=== PATIENT | female | born 1995 | race Caucasian/White ===

== ENCOUNTER → 2017-04-21 15:48 | Observation (INO) ==
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
== END | disposition home or self-care (01) ==
LOC: 1NENULAB
PROVIDERS: ADMIT Student in an Organized Health Care Education/Training Program; ATTEND Student in an Organized Health Care Education/Training Program

== ENCOUNTER → 2017-04-22 22:30 | Observation (INO) ==
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
== END | disposition home or self-care (01) ==
LOC: 1NENULAB
PROVIDERS: ADMIT Registered Nurse; ATTEND Registered Nurse

== ENCOUNTER 2017-06-24 22:03 | Observation (INO) ==
[2017-06-24 22:35] LABS: Amphetamine Screen,Urine Negative ng/mL (Cutoff=1000); Barbiturate Screen,Urine Negative ng/mL (Cutoff=200); Benzodiazepines Screen,Urine Negative ng/mL (Cutoff=200); Cannabinoid Screen,Urine Negative ng/mL (Cutoff = 50); Cocaine Screen,Urine Negative ng/mL (Cutoff= 300); Opiate Screen,Urine Negative ng/mL (Cutoff=300); Phencyclidine Screen,Urine Negative ng/mL (Cutoff=25)
[2017-06-24 22:59] LABS: Bilirubin,Urine Negative (Negative); Blood,Urine Negative (Negative); Clarity,Urine Cloudy (Clear); Color,Urine Yellow (Yellow); Glucose,Urine (UA) Normal (Normal); Ketones,Urine Negative (Negative); Leukocyte Esterase,Urine Large (Negative); Nitrite,Urine Negative (Negative); Protein,Urine Trace mg/dL (Neg-Trace); Specific Gravity,Urine 1.024 (1.010-1.025); Urobilinogen,Urine Normal (Normal)
[2017-06-24 23:05] LABS: Bacteria,Urine Many per hpf (None-Few); Hyaline Casts,Urine None Seen per lpf (None-Few); RBC,Urine 0-3 per hpf (0-3); Squamous Epithelial Cell,Urine Many per lpf (None-Few); WBC,Urine 50-100 per hpf (0-3)
[2017-06-24 23:18] LABS: Yeast,Urine Few per hpf (None Seen)
--- NOTE | 2017-06-24 23:31 | Discharge Summary ---
Date of Encounter: 06/24/17 Time of Encounter: 23:31 - Discharge Diagnosis (1) 34 weeks gestation of Priority: Primary Status: Acute Comments: admit for observation (2) Yeast infection Priority: Secondary Status: Acute Comments: rx for terazol - Discharge Medications Prescriptions: Terconazole [Terazol 3] 20 gm VG HS #1 cream.appl Home Medications: Vitamins 1 tab PO DAILY 04/21/17 [History] Ferrous Sulfate [High Potency Iron] 134 mg PO DAILY 06/24/17 [History] Terconazole [Terazol 3] 20 gm VG HS #1 cream.appl 06/24/17 [Rx] Allergies/Adverse Reactions: 3 Allergy/AdvReac Type Severity Reaction Status Date / Time No Known Allergies Allergy Verified 06/24/17 22:33 Data Procedures and tests throughout hospitalization: Laboratory Tests 06/24/17 06/24/17 22:20 22:20 Urine Color Yellow Urine Clarity Cloudy A Urine pH 7.0 Ur Specific [place] 1.024 Urine Protein Trace Urine Glucose (UA) Normal Urine Ketones Negative Urine Blood Negative Urine Nitrite Negative Urine Bilirubin Negative Urine Urobilinogen Normal Ur Leukocyte Esterase Large H Urine Microscopic RBC 0-3 Urine Microscopic WBC 50-100 H Ur Squamous Epith Cells Many H Urine Bacteria Many H Hyaline Casts None Seen Urine Yeast Few H Ur Culture Indicated? YES A Urine Opiates Screen Negative Ur Barbiturates Screen Negative Ur Phencyclidine Scrn Negative Ur Amphetamines Screen Negative U Benzodiazepines Scrn Negative Urine Cocaine Screen Negative U Marijuana (THC) Screen Negative Labs on day of discharge: Labs from last 24 hours 06/24/17 06/24/17 22:20 22:20 Urine Color Yellow Urine Clarity Cloudy A Urine pH 7.0 Ur Specific [place] 1.024 Urine Protein Trace Urine Glucose (UA) Normal Urine Ketones Negative Urine Blood Negative Urine Nitrite Negative Urine Bilirubin Negative Urine Urobilinogen Normal Ur Leukocyte Esterase Large H Urine Microscopic RBC 0-3 Urine Microscopic WBC 50-100 H Ur Squamous Epith Cells Many H Urine Bacteria Many H Hyaline Casts None Seen Urine Yeast Few H Ur Culture Indicated? YES A Urine Opiates Screen Negative Ur Barbiturates Screen Negative Ur Phencyclidine Scrn Negative Ur Amphetamines Screen Negative U Benzodiazepines Scrn Negative Urine Cocaine Screen Negative U Marijuana (THC) Screen Negative Date of admission: 06/24/17 22:03 Discharging clinician: Tereza Ragland Anticipated date of discharge: 06/24/17 - Patient Status Disposition: Home, Self-Care Condition: Good Functional capacity at discharge: independent ambulation - Discharge Instructions Follow Up With: Haylie Juarez MD [Partnered Physician] - - Diet and Activity Activity: increase activity as tolerated 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 Patient states prior to using the restroom patient had a small gush of fluid. Nitrazine was negative. SVE closed/thick. Urine positive for yeast. Patient denies any vaginal bleeding. Patient reports +FM. Time Attestation: Total time spent providing and/or coordinating discharge services: Time Spent: Less than 30 minutes Exam - Constitutional General appearance IM: A&O X 3, pleasant, answers questions appropriately - Other Additional findings: SVE: Closed/thick/-1 FHR 125 bpm moderate variability +15x15 accels no decels noted. CAt. 1 tracing. - VTE Reasons for not Prescribing Prophylaxis: Treatment not Indicated - Low risk for VTE
== END 2017-06-24 23:36 | disposition home or self-care (01) ==
LOC: 1NENULAB
PROVIDERS: ADMIT Advanced Practice Midwife; ATTEND Advanced Practice Midwife

== ENCOUNTER 2017-07-25 05:57 | Inpatient (IN) ==
[2017-07-25] MEDS ORDERED: Famotidine 20 MG/2 ML VIAL IVP PRN (06:03)
[2017-07-25] MEDS ORDERED: Metoclopramide 10 MG/2 ML VIAL IVP PRN (06:03)
[2017-07-25] MEDS ORDERED: miSOPROStol 25 MCG TABLET VG PRN (06:03)
--- NOTE | 2017-07-25 07:12 | OB/GYN History & Physical ---
Addendum entered and electronically signed by Wong Martinez DO 07/25/17 07 :20: Labs GBS: negative HepBSAb: non-reactive (01/24/17) HIV Ag/AB: non-reactive T. Pallidum: negative Rubella Ab: positive Varicella Ab: positive Original Note: Date of Encounter: 07/25/17 Time of Encounter: 07:05 Assessment and Plan (1) 39 weeks gestation of Current visit: Yes Status: Acute Patient will be admitted to be induced. - IV fluids. - Cytotec. History of Present Illness Chief complaint: Induction HPI: Ms. Crow is a 22 year old female at 39 1/7 wks gestation that presents for labor induction. She says that she feels good movements. She denies vaginal fluid leakage or bleeding. She denies contractions. She has been heaving headaches for the past 2 days secondary to a toothache, but currently denies a headache. She denies vision changes, chest pain, fever, chills, diarrhea, nausea, vomiting, or dysuria. Past Med Surg Social Fam HX - Past Medical History Medical history: no medical history Psychiatric history: no psych history - Past Surgical History Surgical History: other - Social History Smoking Status: Never smoker Smokeless Tobacco Status: No Alcohol use: none Drug use: none - Family History Mother Adopted: No Age: 44 Family Member Ethnicity: Non- Living Status: Still Living Hx Family Cardiac Disorders: No Hx Family Respiratory Disorders: No Hx Family Cancer: No Hx Family GI Disorders: No Hx Family Genitourinary Disorders: No Hx Family Endocrine Disorder: No Hx Family Musculoskeletal Disorders: No Hx Family Neuromuscular Disorders: No Hx Family Neurologic Disorders: No Hx Family HEENT Disorders: No Hx Family Autoimmune Disorders: No Hx Family Reproductive Disorders: No Hx Family Psychosocial Disorders: No Hx Family Medical Disorders: No Obstetrical History - Pregnancies : 1 Para: 0 Term: 0 : 0 Ab's: 0 Livin Medications and Allergies Vitamins 1 tab PO DAILY 04/21/17 [History] Ferrous Sulfate [High Potency Iron] 134 mg PO DAILY 06/24/17 [History] 3 Allergy/AdvReac Type Severity Reaction Status Date / Time No Known Allergies Allergy Verified 06/24/17 22:33 Exam - Vital Signs Vital signs: Initial Vital Signs Temp Pulse Resp BP 97.4 F L 82 16 157/85 07/25/17 06:17 07/25/17 06:17 07/25/17 06:17 07/25/17 06:17 - Constitutional Constitutional: well developed, well nourished, no acute distress, average body habitus - Lungs Respiratory exam: CTAB - Cardiovascular Cardiovascular exam: RRR, +S1, +S2 - Abdomen Abdomen: Present: bowel sounds normal, gravid, non tender - Extremities Extremities exam: full ROM, normal inspection, radial pulses palpable and symmetrical Deep Tendon Reflex Grade: 2+ Normal - Cervix Dilation: 0 Effacement: 100 Station: -3 - Uterus Uterus exam: Present: normal size (FHTs 145 with moderate variability and 15 x 15 accels and no decels. Category I tracing) Results Result Diagrams: 07/25/17 06:50 All other labs normal. - VTE Reasons for not Prescribing Prophylaxis: Treatment not Indicated - Low risk for VTE - Attending Attestation I examined this patient and my medical decision-making was reviewed with the Resident Physician. I agree with the documented findings, disposition and treatment plan as described. Dahlia Hernandez CNM
[2017-07-25 07:18] LABS: Basophils % 0.3 %; Eosinophils # 0.1 K/mcL (0.0-0.6); Eosinophils % 0.7 %; Hematocrit 33.2 % (35.3-44.9); Hemoglobin 9.9 g/dL (11.5-15.4); Immature Granulocytes % 0.9 % (0-4); Immature Platelets 8.8 % (1.1-6.1); Lymphocytes # 1.9 K/mcL (0.6-4.6); Lymphocytes % 15.9 %; Mean Corpuscular HGB Conc 29.8 g/dL (31.6-35.5); Mean Corpuscular Hemoglobin 22.8 pg (28.0-33.3); Mean Corpuscular Volume 76.5 fL (83.0-100.0); Mean Platelet Volume 10.9 fL (9.4-12.4); Monocytes # 0.9 K/mcL (0.0-1.3); Monocytes % 7.6 %; Neutrophils # 8.7 K/mcL (1.6-8.9); Platelet Count 342 K/mcL (140-400); Red Blood Count 4.34 M/mcL (3.82-4.97); Red Cell Distribution Width 17.2 % (11.5-14.5); Segmented Neutrophils % 74.6 %
[2017-07-25 09:29] LABS: Amphetamine Screen,Urine Negative ng/mL (Cutoff=1000); Barbiturate Screen,Urine Negative ng/mL (Cutoff=200); Benzodiazepines Screen,Urine Negative ng/mL (Cutoff=200); Cannabinoid Screen,Urine Negative ng/mL (Cutoff = 50); Cocaine Screen,Urine Negative ng/mL (Cutoff= 300); Opiate Screen,Urine Negative ng/mL (Cutoff=300); Phencyclidine Screen,Urine Negative ng/mL (Cutoff=25)
--- NOTE | 2017-07-25 11:05 | Anesthesia Evaluation PreOp ---
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: Denies Any Significant HX Other Medical History: Other (anemia) Anesthesia History: No Prior Anesthetic Complications : Yes Alcohol Use: none Drug use: none Medications and Allergies Vitamins 1 tab PO DAILY 04/21/17 [History] Ferrous Sulfate [High Potency Iron] 134 mg PO DAILY 06/24/17 [History] 3 Allergy/AdvReac Type Severity Reaction Status Date / Time No Known Allergies Allergy Verified 06/24/17 22:33 - Meds/Allergy Pre-op Review Medications Reviewed: Yes Allergies Reviewed: Yes Beta Blockers on Current Med List: No Anesthesia Results - Labs 07/25/17 06:50 Anesthesia Exam Vital Signs Temperature 97.4 F L 07/25/17 06:17 Pulse Rate 82 07/25/17 06:17 Respiratory Rate 16 07/25/17 06:17 Blood Pressure 157/85 07/25/17 06:17 Temperature 97.4 F L 07/25/17 06:17 Pulse Rate 82 07/25/17 06:17 Respiratory Rate 16 07/25/17 06:17 Blood Pressure 157/85 07/25/17 06:17 Height: 5'9" Weight: 99kg NPO (# of Hours): 4 Pain Scale: 0 Pain Scale Used: Numeric (1 - 10) - HEENT Pupil (Motor): Pupils equal Mallampati: II Teeth: Normal Oral Opening: Greater than 3 - MOSAIC FLOOR LAYER LOC: Oriented [place] FLOOR [place]AY[employer] Motor: Normal RUE, Normal LUE, Normal RLE, Normal LLE, Normal Face [place] FLOOR [place]AYER Sensory: Normal: RUE, LUE, RLE, LLE, Face - Cardiac Rhythm: Regular Murmur: None JVD: No Carotid Bruit: No - Pulmonary Breath Sounds: bilateral Clear Respiratory Effort: Symmetrical Anesthesia Assess/Plan ASA Score: 2 Modified [place] Scale for Level of Consciousness: Cooperative, oriented, and tranquil Anesthetic Plan: Regional Autologous Blood: No Monitoring Plan: Standard Monitors Recovery Plan: Other
--- NOTE | 2017-07-25 11:48 | OB Labor Progress Note ---
Date of Encounter: 07/25/17 Time of Encounter: 11:45 Labor Progress Note - Subjective Subjective: Patient sitting up in chair. States contractions are uncomfortable, but not painful - Vital Signs Vital Signs: VSS - Cervix Cervix: 1/thick/-1 posterior moderate - Heart Tones Heart Tones: 145 with moderate variability and 15 x 15 accels. No decels. - [place]: [place] - contractions every 2 - 3 minutes lasting 45 seconds in length. Palpate mild. - Interventions Interventions: Intracervical peralta balloon placed with speculum without difficulty. Patient and fetus tolerated well. - Plan Plan: Continue routine labor management. GBS negative Pain is well controlled Patient may have nubain/epidural upon request Consider pitocin and/or AROM after peralta bulb is removed Anticipate vaginal delivery POC per consult with Dr Juarez.
[2017-07-25] MEDS ORDERED: *HR* Nalbuphine 20 MG/ML AMPUL ONE (13:27)
[2017-07-25] MEDS ORDERED: Oxytocin 20 units/ LR 1000 mL 20 UNIT/1,000 ML BAG IVC SCH (14:45)
[2017-07-25] MEDS: Ringers Solution, Lactated 1,000 ML IVC SCH (15:53)
[2017-07-25] MEDS ORDERED: Naloxone 0.4 MG/ML INJ IVP PRN (17:08)
[2017-07-25] MEDS ORDERED: EPHEDrine 50 MG/ML VIAL IVP PRN (17:08)
[2017-07-25] MEDS ORDERED: Bupivacaine-MPF 0.25% 10 ML VIAL EP ONE (17:08)
[2017-07-25] MEDS ORDERED: *HR* FentaNYL (PF) 100 MCG/2 ML VIAL EP ONE (17:08)
[2017-07-25] MEDS ORDERED: Ondansetron 4 MG/2 ML VIAL IVP PRN (17:08)
[2017-07-25] MEDS ORDERED: Epidural Premix (fent/bupiv) 110 ML EP SCH (17:15)
[2017-07-25] MEDS ORDERED: Bupivacaine-MPF 0.25% 10 ML VIAL ONE (17:35)
[2017-07-25] MEDS ORDERED: *HR* FentaNYL (PF) 100 MCG/2 ML VIAL ONE (17:35)
[2017-07-25] MEDS ORDERED: Epidural Premix (fent/bupiv) 110 ML EP ONE (17:39)
--- NOTE | 2017-07-25 18:03 | OB Labor Progress Note ---
Date of Encounter: 07/25/17 Time of Encounter: 17:59 Labor Progress Note - Subjective Subjective: Patient resting comfortably in bed. Pain is well controlled. - Vital Signs Vital Signs: VSS - Cervix Cervix: 4/80/-2 midposition soft - Heart Tones Heart Tones: 145 with moderate variability and 15 x 15 accels. no decels - [place]: Contractions every 2 hours. - Interventions Interventions: AROM for moderate amount of clear fluid, IUPC placed without difficulty - Plan Plan: Continue routine labor management Patient may have nubain and or epidural upon request GBS negative Continue to titrate pitocin for adequate labor management Anticipate vaginal delivery POC per consult with Dr Juarez
--- NOTE | 2017-07-25 21:37 | Anesthesia Procedures ---
Date of Encounter: 07/25/17 Time of Encounter: 19:55 Procedures: Anesthesia - Epidural/Spinal Patient ID/Chart reviewed: Yes Patient examined: Yes OB Eval: Gestational age: 39 OB Eval: : 1 OB Eval: Hx Para: 0 OB Eval: Dilated at (cm): 3 OB Eval: Contractions: Non-stressed pattern Consent Obtained: Yes Supplemental Oxygen: None/Room Air Site Prep: Aseptic Technique, Sterile prep and drape, Povidone-Iodine 1% Patient position: upright Local Anesthetic: Lidocaine 1% Amount of Local Anesthetic used: 3 Touhy Needle Gauge: 18 Touhy Needle Depth (cm): 6 Catheter Depth at Skin (cm): 15 Test Dose (1.5% Lido + Epi): Volume given (mls): 3 Test Dose Result: Negative Loading Dose: 0.25% Marcaine (mls): 10 Loading Dose: Fentanyl (mcg): 100 Loading Dose Administered: Thru Catheter Infusion Med: 0.125% Bupivacaine w/ 2 mcg/ml Fentanyl Infusion Rate (mls/hr): [address]: Tegaderm, Tape Interspace Used: L4-L5 Loss of Resistance (SHAILA): Yes Blood: No CSF: No Paresthesia: No Procedure: ALEXIA placed 1st pass in upright position without any immediate noted complications. VSS and FHT stable throughout Vitals + FHT's: 1954 BP 173/80 P 88 R 18 2020 BP 143/74 P 63 R 16
[2017-07-26] MEDS ORDERED: Acetaminophen 325 MG TABLET PO ONE (00:40)
[2017-07-26] MEDS ORDERED: ROPIVACAINE HCL/PF 0.5% 30 ML VIAL ONE (01:56)
--- NOTE | 2017-07-26 02:08 | Anesthesia Progress Note ---
Date of Encounter: 07/26/17 Time of Encounter: 02:05 Anesthesia Note - Note Note: 07/26/17 02:05 Pt stating return of labor pains in back and stomach at 7 of 10 on pain scale. Ropivicaine 0.5% 7ml administered via epidural. Pump rate increased from 16ml/ hr to 18ml/hr. VSS. Will follow up.
[2017-07-26] MEDS ORDERED: Epidural Premix (fent/bupiv) 110 ML EP ONE ×2 (02:25→07:15)
--- NOTE | 2017-07-26 06:47 | Anesthesia Progress Note ---
Date of Encounter: 07/26/17 Time of Encounter: 06:41 Anesthesia Note - Note Note: 07/26/17 06:41 Pt stating return of pain in back and groin of 8 of 10. Pt had been vomiting within the last hour. After previous bolus at 2 am, patient slept and pain subsided. Repeat bolus ropivicaine 0.5% 8ml via epidural catheter. Will follow up.
[2017-07-26] MEDS: Ringers Solution, Lactated 1,000 ML IVC SCH (07:02)
--- NOTE | 2017-07-26 09:19 | OB/GYN Procedure Note ---
Delivery - Delivery Date: 07/26/17 Provider: Sunday Rojas Intrapartum events: none Delivery induction: misoprostol Delivery monitor: external FHT, internal uterine Anesthesia: epidural Estimated Blood Loss: 300 - (s) Infant A Infant Delivery Date: 07/26/17 Infant Delivery Time: 08:49 Presentation: vertex Position: OA Route of delivery: Gender: Female Viability: Viable Pounds: 8 Ounces: 9 at 1 minute: 8 at 5 mins: 9 Shoulder Dystocia: not encountered Specimens collected: cord blood Placenta: spontaneous Cord: 3 umbilical vessels - Repair Episiotomy: none Laceration Description: Perineal - 1st Degree - Complications Delivery complications: none - Disposition Mom disposition: stable in LDR disposition: stable in LDR - Comments Comments: Pt s/p of liveborn female form OA position without difficulty. Spontaneous delivery of normal placental with 3VC. 1st degree laceration repaired under epidural with 3 vc.
[2017-07-26] MEDS ORDERED: Measles/Mumps/Rubella Vacc 0.5 ML VIAL SQ PRN (12:05)
[2017-07-26] MEDS ORDERED: Rho Immune Globulin 1,500 UNIT SYRINGE IM PRN (12:05)
[2017-07-26] MEDS ORDERED: Acetaminophen 325 MG TABLET PO PRN (12:05)
[2017-07-26] MEDS ORDERED: Oxytocin 20 units/ LR 1000 mL 20 UNIT/1,000 ML BAG IVC SCH (12:05)
[2017-07-26] MEDS: Ibuprofen 600 MG TABLET PO PRN ×2 (13:37→21:08)
[2017-07-27 06:17] LABS: Basophils # 0.1 K/mcL (0.0-0.2); Basophils % 0.4 %; Eosinophils # 0.1 K/mcL (0.0-0.6); Eosinophils % 0.9 %; Hematocrit 25.5 % (35.3-44.9); Hemoglobin 7.8 g/dL (11.5-15.4); Immature Granulocytes % 0.7 % (0-4); Lymphocytes % 14.5 %; Mean Corpuscular HGB Conc 30.6 g/dL (31.6-35.5); Mean Corpuscular Hemoglobin 23.2 pg (28.0-33.3); Mean Corpuscular Volume 75.9 fL (83.0-100.0); Mean Platelet Volume 10.8 fL (9.4-12.4); Monocytes # 1.1 K/mcL (0.0-1.3); Monocytes % 7.9 %; Neutrophils # 10.5 K/mcL (1.6-8.9); Platelet Count 280 K/mcL (140-400); Red Blood Count 3.36 M/mcL (3.82-4.97); Red Cell Distribution Width 17.4 % (11.5-14.5); Segmented Neutrophils % 75.6 %
[2017-07-27] MEDS: Ibuprofen 600 MG TABLET PO PRN (06:25)
[2017-07-27 08:35] VITALS: BP 136/82
--- NOTE | 2017-07-27 08:37 | OB/GYN Progress Note ---
Date of Encounter: 07/27/17 Time of Encounter: 08:35 - Assessment and Plan (1) Status post vaginal delivery Current Visit: Yes Status: Acute patient doing very well, , lochia light, cont current inpt care Subjective - Subjective Patient reports: appetite normal, voiding normally, pain well controlled, ambulating normally [place]: doing well Objective - Latest Vital Signs Latest vital signs: Vital Signs Temp Pulse Pulse Resp BP Pulse Ox 07/27/17 07:30 98.2 F 95 16 136/82 07/27/17 05:11 98.2 F 89 89 18 132/85 07/26/17 19:25 98.0 F 90 16 129/76 98 07/26/17 14:19 98.8 F 79 17 132/82 97 07/26/17 13:30 98.6 F 81 16 123/70 07/26/17 12:00 98.8 F 88 18 144/87 98 Intake and Output 07/26/17 07/27/17 07/27/17 23:59 07:59 15:59 Intake Total 1300 / 1300 200 / 200 Output Total 600 / 600 1000 / 1000 Balance 700 / 700 -800 / -800 Intake: IV Fluids 0 / 0 Pitocin 20 unit In 1,000 ml @ 0 / 0 125 mls/hr IVC .Q8H PERNELL Rx#: [id number] Oral 1300 / 1300 200 / 200 Output: Urine 600 / 600 1000 / 1000 Other: Meal Dinner Percent of Meal Consumed 100% Weight 96.5 kg Patient Weight 07/27/17 23:59 Weight 96.5 kg - Exam Lungs: bilateral: normal Chest: Normal S1, Normal S2 Extremities: Present: normal Abdomen: Present: soft Uterus: Present: normal - Labs Labs: Laboratory Results - last 24 hr 07/27/17 05:48 WBC 13.9 H RBC 3.36 L Hgb 7.8 L D Hct 25.5 L MCV 75.9 L MCH 23.2 L MCHC 30.6 L RDW 17.4 H Plt Count 280 MPV 10.8 Immature Gran % 0.7 Seg Neutrophils % 75.6 Lymphocytes % 14.5 Monocytes % 7.9 Eosinophils % 0.9 Basophils % 0.4 Neutrophils # 10.5 H Lymphocytes # 2.0 Monocytes # 1.1 Eosinophils # 0.1 Basophils # 0.1
[2017-07-27] MEDS ORDERED: Prenatal Vit/FA 1 EACH TABLET PO SCH (09:00)
--- NOTE | 2017-07-27 14:26 | Discharge Summary ---
Date of Encounter: 07/27/17 Time of Encounter: 14:25 - Discharge Diagnosis (1) Status post vaginal delivery Priority: Primary Status: Acute Comments: ok for discharge - Discharge Medications Home Medications: Vitamins 1 tab PO DAILY 04/21/17 [History] Ferrous Sulfate [High Potency Iron] 134 mg PO DAILY 06/24/17 [History] Allergies/Adverse Reactions: 3 Allergy/AdvReac Type Severity Reaction Status Date / Time No Known Allergies Allergy Verified 06/24/17 22:33 Data Procedures and tests throughout hospitalization: Laboratory Tests 07/25/17 07/25/17 07/27/17 06:50 06:50 05:48 WBC 11.7 H 13.9 H RBC 4.34 3.36 L Hgb 9.9 L 7.8 L D Hct 33.2 L 25.5 L MCV 76.5 L 75.9 L MCH 22.8 L 23.2 L MCHC 29.8 L 30.6 L RDW 17.2 H 17.4 H Plt Count 342 280 MPV 10.9 10.8 Immature Gran % 0.9 0.7 Seg Neutrophils % 74.6 75.6 Lymphocytes % 15.9 14.5 Monocytes % 7.6 7.9 Eosinophils % 0.7 0.9 Basophils % 0.3 0.4 Neutrophils # 8.7 10.5 H Lymphocytes # 1.9 2.0 Monocytes # 0.9 1.1 Eosinophils # 0.1 0.1 Basophils # 0.0 0.1 Immature Plt Fraction 8.8 H Urine Opiates Screen Negative Ur Barbiturates Screen Negative Ur Phencyclidine Scrn Negative Ur Amphetamines Screen Negative U Benzodiazepines Scrn Negative Urine Cocaine Screen Negative U Marijuana (THC) Screen Negative Labs on day of discharge: Labs from last 24 hours 07/27/17 05:48 WBC 13.9 H RBC 3.36 L Hgb 7.8 L D Hct 25.5 L MCV 75.9 L MCH 23.2 L MCHC 30.6 L RDW 17.4 H Plt Count 280 MPV 10.8 Immature Gran % 0.7 Seg Neutrophils % 75.6 Lymphocytes % 14.5 Monocytes % 7.9 Eosinophils % 0.9 Basophils % 0.4 Neutrophils # 10.5 H Lymphocytes # 2.0 Monocytes # 1.1 Eosinophils # 0.1 Basophils # 0.1 Date of admission: 07/25/17 05:57 Primary care physician: PCP NONE Consults: 07/26/17 12:05 Consult to Coin Rolling Machine Operator [CONS] Routine Comment: Vaginal delivery, consult needed - Patient Status Disposition: Home, Self-Care Condition: Good Functional capacity at discharge: independent ambulation Overall status at discharge: patient is progressing back to baseline - Discharge Instructions Follow Up With: NONE,PCP [Primary Care Provider] - Hospital Course MEDICAL OFFICE 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
== END 2017-07-27 15:40 | disposition home or self-care (01) | DRG 775 ==
LOC: 1NENULAB 05:57 → 1NENUOBS 07-26 11:53
PROVIDERS: ADMIT Student in an Organized Health Care Education/Training Program; ATTEND Student in an Organized Health Care Education/Training Program

== ENCOUNTER 2017-10-11 00:34 | Observation (INO) ==
[2017-10-11 01:35] LABS: Basophils # 0.1 K/mcL (0.0-0.2); Basophils % 0.4 %; Eosinophils # 0.2 K/mcL (0.0-0.6); Eosinophils % 1.1 %; Hematocrit 36.2 % (35.3-44.9); Hemoglobin 10.9 g/dL (11.5-15.4); Immature Granulocytes % 0.4 % (0-4); Lymphocytes # 1.9 K/mcL (0.6-4.6); Lymphocytes % 13.2 %; Mean Corpuscular HGB Conc 30.1 g/dL (31.6-35.5); Mean Corpuscular Volume 76.5 fL (83.0-100.0); Mean Platelet Volume 10.1 fL (9.4-12.4); Monocytes # 1.5 K/mcL (0.0-1.3); Monocytes % 10.9 %; Neutrophils # 10.4 K/mcL (1.6-8.9); Platelet Count 426 K/mcL (140-400); Red Blood Count 4.73 M/mcL (3.82-4.97); Red Cell Distribution Width 15.3 % (11.5-14.5)
[2017-10-11 01:50] LABS: Bilirubin,Urine Negative (Negative); Blood,Urine Negative (Negative); Clarity,Urine Clear (Clear); Color,Urine Yellow (Yellow); Glucose,Urine (UA) Normal (Normal); Ketones,Urine Negative (Negative); Leukocyte Esterase,Urine Small (Negative); Nitrite,Urine Negative (Negative); PH,Urine 6.5 pH Units (5.0-8.0); Protein,Urine 30 mg/dL (Neg-Trace); Specific Gravity,Urine 1.026 (1.010-1.025); Urobilinogen,Urine Normal (Normal)
[2017-10-11 01:54] LABS: Bacteria,Urine None Seen per hpf (None-Few); Hyaline Casts,Urine None Seen per lpf (None-Few); Squamous Epithelial Cell,Urine Many per lpf (None-Few); WBC,Urine 15-30 per hpf (0-3)
--- NOTE | 2017-10-11 02:59 | Emergency Department Note ---
Disposition Clinical Impression: Transaminitis Abdominal pain Qualifiers: Abdominal location: unspecified location Qualified Code(s): R10.9 - Unspecified abdominal pain Pancreatitis Qualifiers: Chronicity: acute Pancreatitis type: unspecified pancreatitis type Acute pancreatitis complication: unspecified Qualified Code(s): K85.90 - Acute pancreatitis without necrosis or infection, unspecified Nausea & vomiting Qualifiers: Vomiting type: unspecified Vomiting Intractability: unspecified Qualified Code( s): R11.2 - Nausea with vomiting, unspecified Disposition: Admitted As Inpatient Condition: Good Time of Disposition: 04:44 Abdominal Pain HPI - General Chief Complaint: ED Abdominal Pain Stated Complaint: abdominal pain Time Seen by Provider: 10/11/17 00:40 Source: patient Mode of arrival: ambulatory Limitations: no limitations Nursing Notes Reviewed: Yes Vital Signs Reviewed: Yes - History of Present Illness HPI Narrative: 22-year-old female 2 months presents to the ED with abdominal pain. Patients unsure if this is continue sensor or not but has been persistent and intermittent. The pain is mostly in the right upper quadrant. Seems to be worse at night describes as a sharp pain. Reports nausea and vomiting. She is currently breast-feeding and was concerned that she may be as she did have a positive urine . Denies any fevers, recent illness, chest pain or shortness of breath. Denies any urinary symptoms. She does report issues with constipation she denies any opiate use. Denies any alcohol use. States she had similar episodes may be during and at one time was told she has gallstones. She does have appointment with Dr. Fatima in 5 days for evaluation. Earlier today she has some severe pain took ibuprofen with minimal relief. Pt Subjective Complaint: abdominal pain Pain Scale: 8 - Related Data Home Medications Medication Instructions Recorded Confirmed Vitamins 1 tab PO DAILY 04/21/17 06/24/17 Ferrous Sulfate [High Potency Iron] 134 mg PO DAILY 06/24/17 06/24/17 Previous Rx's Medication Instructions Recorded Ibuprofen [Motrin] 600 mg PO Q6HR PRN #60 tab 07/27/17 Allergies Allergy/AdvReac Type Severity Reaction Status Date / Time No Known Allergies Allergy Verified 09/02/17 02:59 All systems ED: reviewed and negative except as stated. Review of Systems: As Per HPI Constitutional: Denies: fever, chills ENT ED: Denies: congestion Cardiovascular: Denies: chest pain Respiratory: Denies: cough, dyspnea Gastrointestinal: Reports: abdominal pain, nausea, vomiting Genitourinary: Denies: urgency, dysuria Musculoskeletal: Denies: back pain Integumentary: Denies: rash, abrasion Neurological: Denies: headache Abdominal Pain PMH - Past Medical History Medical history: Reports: no medical history Female Surgical History: Reports: Tonsillectomy [employer] history: Reports: Psychiatric history: Reports: no psych history - Social History Smoking status: Never smoker Alcohol use: Reports: none Drug use: Reports: none Physical Exam - General Limitations: no limitations General appearance: alert, in no apparent distress - Head Head exam: atraumatic, normocephalic, normal inspection - Eye Eye exam: Present: normal appearance, PERRL, EOMI. Absent: scleral icterus - ENT ENT exam: normal exam, normal oropharynx, mucous membranes moist - Neck Neck exam: Present: normal inspection, full ROM, trachea midline - Chest Chest inspection: Present: normal inspection, symmetric chest wall rise - Respiratory Respiratory exam: Present: normal lung sounds bilaterally - Cardiovascular Cardiovascular exam: Present: regular rate, normal rhythm, normal heart sounds - Abdominal Exam Abdominal exam: Present: soft, tenderness, normal bowel sounds, Clay's sign. Absent: Non-Tender, distention, guarding, rebound, rigidity, tenderness at McBurney's Point Abdominal tenderness: Present: RUQ, epigastrium - Extremities Exam Extremities exam: Present: normal inspection, full ROM, normal capillary refill. Absent: tenderness, pedal edema - Back Exam Back exam: Present: normal inspection, full ROM. Absent: tenderness, CVA tenderness (R), CVA tenderness (L) - Neurological Exam Neurological exam: Present: alert, oriented X3 - Skin Skin exam: Present: warm, dry, intact, normal color. Absent: rash, cyanosis, diaphoresis Course - Reevaluation(s) Reevaluation #1: Patient has positive Clay sign on examination. Bedside ultrasound performed by myself showed sludge within normal anterior wall of 0.24 cm. She had sonographic Clay sinus well. No McBurney point tenderness. These findings are consistent with biliary colic. Unfortunately her electrolytes and hepatic panel require redraw. She does have a mild leukocytosis. Urinalysis is not consistent with infection. She is not . Will wait reanalysis of her laboratory results. Patient is currently pain free right now. I have offered her ibuprofen and/or Tylenol which she has kindly refused at this time. Would normally consider Bentyl or Levsinbut given her and breast-feeding is contraindicated at this time. She is agreeable to this plan. Reevaluation #2: Review for labs show elevated transaminase and alk phos, however they are improved from prior. Her lipases significantly elevated 8000. CT was performed and confirms pancreatitis. Given her history of of cholelithiasis suspect this is likely gallstone pancreatitis. She does have a schedule point will with Dr. Fatima on Friday. Her pain is controlled at this time. We will continue aggressive fluid hydration and admit her for further evaluation and management. Patients in agreement with this plan. Impression is abdominal pain nausea vomiting and pancreatitis. - Consultations Consultation #1: Spoke with on-call hospitalist deepa Tidwell to admit for cute pancreatitis. No further orders at this time Time: 04:43 Vital Signs Temperature 97.6 F 10/11/17 00:35 Pulse Rate 86 10/11/17 00:35 Respiratory Rate 18 10/11/17 00:35 Blood Pressure 136/84 10/11/17 00:35 O2 Sat by Pulse Oximetry 100 10/11/17 00:35 Temperature 97.6 F 10/11/17 00:35 Pulse Rate 73 10/11/17 04:25 Respiratory Rate 16 10/11/17 04:25 Blood Pressure 127/65 10/11/17 04:25 O2 Sat by Pulse Oximetry 99 10/11/17 03:06 Oxygen Delivery Oxygen Delivery Room Air Abdominal Pain - MDM Narrative Medical decision making narrative: Patient was discussed with my attending physician who agrees with ED management and final disposition. They independently evaluated the patient. Please refer to their attestation to this encounter for additional information. This note was generated by [employer] voice recognition software and as a result grammatical or spelling errors may occur using this program. - Medical Records Medical records reviewed: Yes I reviewed the patient's medical records. - Lab Data Lab results reviewed: Yes I reviewed the patient's lab results. Result diagrams: 10/11/17 01:01 10/11/17 02:36 Lab Results 10/11/17 10/11/17 10/11/17 Range/Units 00:42 01:01 01:01 WBC 14.0 H (4.3-11.1) K/mcL RBC 4.73 (3.82-4.97) M/mcL Hgb 10.9 L (11.5-15.4) g/dL Hct 36.2 (35.3-44.9) % MCV 76.5 L (83.0-100.0) fL MCH 23.0 L (28.0-33.3) pg MCHC 30.1 L (31.6-35.5) g/dL RDW 15.3 H (11.5-14.5) % Plt Count 426 H (140-400) K/mcL MPV 10.1 (9.4-12.4) fL Immature Gran % 0.4 (0-4) % Seg Neutrophils % 74.0 % Lymphocytes % 13.2 % Monocytes % 10.9 % Eosinophils % 1.1 % Basophils % 0.4 % Neutrophils # 10.4 H (1.6-8.9) K/mcL Lymphocytes # 1.9 (0.6-4.6) K/mcL Monocytes # 1.5 H (0.0-1.3) K/mcL Eosinophils # 0.2 (0.0-0.6) K/mcL Basophils # 0.1 (0.0-0.2) K/mcL Sodium Cancelled Potassium Cancelled Chloride Cancelled Carbon Dioxide Cancelled BUN Cancelled Creatinine Cancelled Est GFR ( Amer) Cancelled Est GFR (Non-Af Amer) Cancelled BUN/Creatinine Ratio Cancelled Glucose Cancelled Calculated Osmolality Cancelled Calcium Cancelled Total Bilirubin Cancelled Direct Bilirubin Cancelled Indirect Bilirubin Cancelled AST Cancelled ALT Cancelled Alkaline Phosphatase Cancelled Serum Total Protein Cancelled Albumin Cancelled Globulin Cancelled Albumin/Globulin Ratio Cancelled Lipase Cancelled Beta HCG, Quant < 1 (Less than 5) mIU/mL Urine Color Yellow (Yellow) Urine Clarity Clear (Clear) Urine pH 6.5 (5.0-8.0) pH Units Ur Specific [place] 1.026 H (1.010-1.025) Urine Protein 30 H (Neg-Trace) mg/dL Urine Glucose (UA) Normal (Normal) mg/dL Urine Ketones Negative (Negative) mg/dL Urine Blood Negative (Negative) Urine Nitrite Negative (Negative) Urine Bilirubin Negative (Negative) Urine Urobilinogen Normal (Normal) mg/dL Ur Leukocyte Esterase Small H (Negative) Urine Microscopic RBC 3-5 H (0-3) per hpf Urine Microscopic WBC 15-30 H (0-3) per hpf Ur Squamous Epith Cells Many H (None-Few) per lpf Urine Bacteria None Seen (None-Few) per hpf Hyaline Casts None Seen (None-Few) per lpf Ur Culture Indicated? NO. (NO) Specimen Rejected 10/11/17 10/11/17 Range/Units 01:01 02:36 WBC (4.3-11.1) K/mcL RBC (3.82-4.97) M/mcL Hgb (11.5-15.4) g/dL Hct (35.3-44.9) % MCV (83.0-100.0) fL MCH (28.0-33.3) pg MCHC (31.6-35.5) g/dL RDW (11.5-14.5) % Plt Count (140-400) K/mcL MPV (9.4-12.4) fL Immature Gran % (0-4) % Seg Neutrophils % % Lymphocytes % % Monocytes % % Eosinophils % % Basophils % % Neutrophils # (1.6-8.9) K/mcL Lymphocytes # (0.6-4.6) K/mcL Monocytes # (0.0-1.3) K/mcL Eosinophils # (0.0-0.6) K/mcL Basophils # (0.0-0.2) K/mcL Sodium 139 Potassium 3.6 Chloride 107 Carbon Dioxide 23 BUN 12 Creatinine 0.67 Est GFR ( Amer) > 60 Est GFR (Non-Af Amer) > 60 BUN/Creatinine Ratio 18 Glucose 129 H Calculated Osmolality 289 Calcium 9.0 Total Bilirubin 0.3 Direct Bilirubin 0.1 Indirect Bilirubin 0.2 AST 224 H ALT 153 H Alkaline Phosphatase 133 H Serum Total Protein 7.0 Albumin 4.2 Globulin 2.8 Albumin/Globulin Ratio 1.5 Lipase 8004 H Beta HCG, Quant (Less than 5) mIU/mL Urine Color (Yellow) Urine Clarity (Clear) Urine pH (5.0-8.0) pH Units Ur Specific [place] (1.010-1.025) Urine Protein (Neg-Trace) mg/dL Urine Glucose (UA) (Normal) mg/dL Urine Ketones (Negative) mg/dL Urine Blood (Negative) Urine Nitrite (Negative) Urine Bilirubin (Negative) Urine Urobilinogen (Normal) mg/dL Ur Leukocyte Esterase (Negative) Urine Microscopic RBC (0-3) per hpf Urine Microscopic WBC (0-3) per hpf Ur Squamous Epith Cells (None-Few) per lpf Urine Bacteria (None-Few) per hpf Hyaline Casts (None-Few) per lpf Ur Culture Indicated? (NO) Specimen Rejected Hemolyzed - Radiology Data Radiology results reviewed: Yes I reviewed the patient's radiology results. Abdomen/Pelvis CT 10/11/17 03:30 IMPRESSION: Minimal right upper quadrant inflammation. Given the history this is most likely related to acute pancreatitis. D/ / Tomas Link MD / Tomas Link MD Interpreting Provider: Tomas Link MD Attestation Statement - Attestation Attestation: I, Arvin Shaikh MD, personally evaluated this patient and discussed their management with the resident physician. I reviewed the resident's note and agree with the documented findings, medical decision making, and plan of care. 22-year-old female presents to the emergency department with a complaint of severe epigastric and right upper quadrant abdominal pain which started earlier this evening. Patient has been having similar episodes of pain intermittently for a while. She just had a baby about 2-1/2 months ago. She has had a gallbladder ultrasound which showed cholelithiasis and she is actually scheduled to see a surgeon next week. On examination patient is a well-developed well-nourished well-appearing young female in no acute distress. She is alert and oriented 3. There is no cyanosis or diaphoresis. Breath sounds are clear and equal bilaterally. Heart regular rate and rhythm. Abdomen is soft with present bowel sounds. There is moderate epigastric and right upper quadrant tenderness. No guarding or rebound tenderness. Labs reviewed. Lipase is 8004. CT of the abdomen and pelvis shows minimal right upper quadrant inflammation. Given the history this is most likely related to acute pancreatitis. The hospitalist, Dr. Estrada, was consulted and accepted admission of the patient.
[2017-10-11 03:20] LABS: Alanine Aminotransferase 153 Units/L (7-52); Albumin 4.2 g/dL (3.5-5.7); Albumin/Globulin Ratio 1.5 (1.1-2.2); Alkaline Phosphatase 133 Units/L (34-104); Aspartate Amino Transferase 224 Units/L (13-39); BUN/Creatinine Ratio 18 (6-26); Bilirubin,Direct 0.1 mg/dL (0.0-0.2); Bilirubin,Indirect 0.2 mg/dL (0.0-1.2); Bilirubin,Total 0.3 mg/dL (0.3-1.0); Blood Urea Nitrogen 12 mg/dL (6-20); Carbon Dioxide 23 mEq/L (23-29); Chloride 107 mEq/L (98-107); Globulin 2.8 g/dL (2.4-3.5); Glucose 129 mg/dL (70-105); Lipase 8004 Units/L (11-82); Osmolality,Calculated 289 (280-300); Potassium 3.6 mEq/L (3.5-5.1); Sodium 139 mEq/L (136-145); eGFR For African Americans > 60 (> 60); eGFR For Non-African Americans > 60 (> 60)
[2017-10-11] MEDS ORDERED: 0.9 % Sodium Chloride 1,000 ML IVC ONE ×2 (03:29→04:45)
[2017-10-11] MEDS ORDERED: Acetaminophen 325 MG TABLET PO PRN (05:12)
[2017-10-11] MEDS ORDERED: Ondansetron 4 MG/2 ML VIAL IVP PRN (05:12)
[2017-10-11] MEDS ORDERED: Naloxone 0.4 MG/ML INJ IVP PRN (05:12)
[2017-10-11] MEDS ORDERED: *HR* Morphine 2 MG/ML SYRINGE IVP PRN (05:12)
--- NOTE | 2017-10-11 05:27 | Internal Med History&Physical ---
Date of Encounter: 10/11/17 Time of Encounter: 04:30 Assessment and Plan (1) Acute pancreatitis Current visit: Yes Status: Acute Pt has abd pain, elevated lipase. CT result c/w acute pancreatitis. Pt had US abd on 09/02/17 shows gall stone. - Consider acute pancreatitis caused by gall stone. - Place pt on NPO, IVF, pain medication. - Track lipase level. - Bilirubin wnl. Will repeat US abd to reevaluate gall stone and r/o CBD dilation. - Consult surgery in AM. Qualifiers: Pancreatitis type: biliary Acute pancreatitis complication: no infection or necrosis Qualified Code(s): K85.10 - Biliary acute pancreatitis without necrosis or infection (2) Lactating mother Current visit: Yes Status: Acute Checked epocrates for all medication used for lactating safty. (3) DVT prophylaxis Current visit: Yes Status: Acute Lovenox sc. Internal Medicine - H&P: HPI Chief complaint: abd pain Admitted From: Home Plans for Post Hospital Care: Home History of present illness: Ms. Crow is a 22 year old female with no known medical history, with for 2 months now and current breast lactating, present to ER for acute upper abd pain for about 2 hours. Pt also has nausea and vomited once. Vomiting was stomach content, no blood in it. In ER, lab result shows lipase high to 8000, CT abd shows RUQ inflammation c/w pancreatitis. Pt denies dysuria , urgency. She denies fever or diarrhea. Past Med Surg Social Fam HX - Past Medical History Medical history: no medical history Psychiatric history: no psych history - Past Surgical History Surgical History: other - Social History Smoking Status: Never smoker Smokeless Tobacco Status: No Alcohol use: none Drug use: none - Family History Mother Adopted: No Family Member Ethnicity: Non- Living Status: Still Living Hx Family Cardiac Disorders: No Hx Family Respiratory Disorders: No Hx Family Cancer: No Hx Family GI Disorders: No Hx Family Endocrine Disorder: No Hx Family Neuromuscular Disorders: No Hx Family Neurologic Disorders: No Hx Family HEENT Disorders: No Hx Family Autoimmune Disorders: No Internal Medicine - H&P: Meds Vitamins 1 tab PO DAILY 04/21/17 [History] Ferrous Sulfate [High Potency Iron] 134 mg PO DAILY 06/24/17 [History] Ibuprofen [Motrin] 600 mg PO Q6HR PRN #60 tab 07/27/17 [Rx] 3 Allergy/AdvReac Type Severity Reaction Status Date / Time No Known Allergies Allergy Verified 09/02/17 02:59 All Systems PM: A 10-system review of systems was performed and is negative for pertinent findings except as documented above in the HPI. - Constitutional Vitals: Temp Pulse Resp BP Pulse Ox 97.6 F 73 12 132/80 99 10/11/17 00:35 10/11/17 04:25 10/11/17 05:09 10/11/17 05:09 10/11/17 03:06 General appearance: Present: A&O X 3, no acute distress, answers questions appropriately - Head Head exam: Present: atraumatic, normocephalic - Eye Eye exam: Present: PERRL, conjuntiva pink, sclera anicteric Pupils: Present: PERRL - Neck Neck exam general surgery: Present: supple, trachea midline. Absent: lymphadenopathy - Respiratory Respiratory exam: Present: CTAB. Absent: accessory muscle use, rales, rhonchi, wheezes - Cardiovascular Cardiovascular exam: Present: RRR, +S1, +S2. Absent: diastolic murmur, gallop, rubs, systolic murmur - GI/Abdominal GI/Abdominal exam: Present: normal bowel sounds, soft, tenderness (RUQ tenderness w/o guarding or rebound), no peritoneal signs. Absent: distended - Extremities Exam Extremities exam: Present: warm, radial pulses palpable and symmetrical. Absent : calf tenderness, cyanotic, pedal edema - Neurological Exam Neurological exam: Present: CN II-XII intact, oriented X3, no focal deficits. Absent: pronater drift, facial droop, speech deficit - Skin Skin exam: Present: dry, intact Internal Med - H&P Results - Labs CBC & Chem 7: 10/11/17 01:01 10/11/17 02:36
[2017-10-11] MEDS: 0.9 % Sodium Chloride 1,000 ML IVC SCH ×2 (06:23→15:51)
[2017-10-11] MEDS: *HR* Enoxaparin 40 MG/0.4 ML SYRINGE SQ SCH (06:24)
--- NOTE | 2017-10-11 17:21 | Event Note ---
Date of Encounter: 10/11/17 Time of Encounter: 17:20 Patient seen and examined at bedside: Came in for abdominal pain, nausea and vomiting. Labs and CT abdomen pelvis consistent with acute pancreatitis. Lipase elevated in 8000s. VS; reviewed physical exam unremarkable including benign abdominal exam Acute pancreatitis, likely gallstone related. Currently she has minimal abdominal She has a scheduled appointment with General Surgery, will hold off surgery consult and treat pancreatitis. Advance diet as tolerated.
[2017-10-12] MEDS: *HR* Enoxaparin 40 MG/0.4 ML SYRINGE SQ SCH (06:21)
[2017-10-12 06:49] LABS: Basophils % 0.4 %; Eosinophils # 0.2 K/mcL (0.0-0.6); Eosinophils % 3.2 %; Hematocrit 33.9 % (35.3-44.9); Hemoglobin 10.2 g/dL (11.5-15.4); Immature Granulocytes % 0.4 % (0-4); Lymphocytes % 34.8 %; Mean Corpuscular HGB Conc 30.1 g/dL (31.6-35.5); Mean Corpuscular Hemoglobin 23.4 pg (28.0-33.3); Mean Corpuscular Volume 77.8 fL (83.0-100.0); Mean Platelet Volume 9.8 fL (9.4-12.4); Monocytes # 0.5 K/mcL (0.0-1.3); Monocytes % 8.9 %; Neutrophils # 2.6 K/mcL (1.6-8.9); Platelet Count 313 K/mcL (140-400); Red Blood Count 4.36 M/mcL (3.82-4.97); Red Cell Distribution Width 14.9 % (11.5-14.5); Segmented Neutrophils % 52.3 %
[2017-10-12 06:50] LABS: Lymphocytes # 1.7 K/mcL (0.6-4.6)
[2017-10-12 07:04] LABS: Alanine Aminotransferase 110 Units/L (7-52); Albumin 3.9 g/dL (3.5-5.7); Albumin/Globulin Ratio 1.6 (1.1-2.2); Alkaline Phosphatase 111 Units/L (34-104); Aspartate Amino Transferase 49 Units/L (13-39); BUN/Creatinine Ratio 16 (6-26); Bilirubin,Total 0.4 mg/dL (0.3-1.0); Blood Urea Nitrogen 9 mg/dL (6-20); Calcium 9.2 mg/dL (8.6-10.3); Carbon Dioxide 23 mEq/L (23-29); Chloride 106 mEq/L (98-107); Globulin 2.4 g/dL (2.4-3.5); Glucose 80 mg/dL (70-105); Osmolality,Calculated 284 (280-300); Potassium 3.8 mEq/L (3.5-5.1); Sodium 138 mEq/L (136-145); Total Protein 6.3 g/dL (6.4-8.9); eGFR For African Americans > 60 (> 60); eGFR For Non-African Americans > 60 (> 60)
[2017-10-12 07:05] LABS: Chol/HDL Ratio 3.6 (0-4.9)
[2017-10-12 10:49] VITALS: BP 126/78
--- NOTE | 2017-10-12 10:52 | Internal Med Progress Note ---
Date of Encounter: 10/12/17 Time of Encounter: 10:47 - Assessment and plan (1) Acute pancreatitis Current Visit: Yes Status: Acute Assessment and plan: Clinically improving and lipase now 70s was 8000 yesterday Likely gallstone related, seen on ultrasound 08/23/17 and yesterday's studies. No obstruction seen. Patient has upcoming office apointment with Surgery tomorrow, she believes the office visit is in regards to gallbladder. Will consult General Surgery if they would like patient to be seen while she is here vs keep office visit tomorrow if she tolerates diet. Qualifiers: Pancreatitis type: biliary Acute pancreatitis complication: no infection or necrosis Qualified Code(s): K85.10 - Biliary acute pancreatitis without necrosis or infection - Constitutional Vitals: Temp Pulse Resp BP Pulse Ox 97.8 F 59 18 118/71 99 10/12/17 06:55 10/12/17 06:55 10/12/17 06:55 10/12/17 06:55 10/12/17 06:55 General appearance: Present: A&O X 3, no acute distress, answers questions appropriately Internal Medicine: Result - Labs CBC & Chem 7: 10/12/17 06:18 10/12/17 06:18 Labs: Short CBC 10/12/17 Range/Units 06:18 WBC 5.0 D (4.3-11.1) K/mcL Hgb 10.2 L (11.5-15.4) g/dL Hct 33.9 L (35.3-44.9) % Plt Count 313 (140-400) K/mcL Neutrophils # 2.6 (1.6-8.9) K/mcL BMP 10/12/17 06:18 Sodium 138 Potassium 3.8 Chloride 106 Carbon Dioxide 23 BUN 9 Creatinine 0.57 L Glucose 80 Calcium 9.2 Liver Function 10/12/17 Range/Units 06:18 Total Bilirubin 0.4 (0.3-1.0) mg/dL AST 49 H (13-39) Units/L ALT 110 H (7-52) Units/L Alkaline Phosphatase 111 H (34-104) Units/L Albumin 3.9 (3.5-5.7) g/dL - Impressions Impressions Abdomen Ultrasound 10/11/17 09:00 IMPRESSION: Few punctate mobile shadowing echogenic foci in the gallbladder consistent with cholelithiasis. D/ / Dian Veloz MD / Dian Veolz MD Interpreting Provider: Dian Veloz MD Consult Discharge Plan - Plan Referrals: Jorden Howe MD [Primary Care Provider] -
--- NOTE | 2017-10-12 11:56 | General Surgery Consult Note ---
<Belgica Hdez - Last Filed: 10/12/17 12:23> Date of Encounter: 10/12/17 Time of Encounter: 11:46 History of Present Illness Consult date: 10/12/17 Reason for consult: other (pancreatitis) History of present illness: 22 year old female, 2 months came in complaining of severe, unremitting epigastric pain that started 2 hours prior. She denies any association with food intake, and states that in the past ibuprofen has helped with her abdominal pain. She states that when present, her pain concentrates below her ribcage and is accompanied by nausea and vomiting. The patient states that her abdominal pain, nausea, and vomiting is not present today. She states that last week her mother scheduled an appointment with Dr. Fatima to assess the etiology of this pain. Past Med Surg Social Fam HX - Past Medical History Medical history: no medical history Psychiatric history: no psych history - Past Surgical History Surgical History: other (tonsillectomy) - Social History Smoking Status: Never smoker Smokeless Tobacco Status: No Alcohol use: none Drug use: none - Family History Mother Adopted: No Family Member Ethnicity: Non- Living Status: Still Living Hx Family Cardiac Disorders: No Hx Family Respiratory Disorders: No Hx Family Cancer: No Hx Family GI Disorders: Yes (Mother had similar symptoms after and had gallbladder removed) Hx Family Endocrine Disorder: No Hx Family Neuromuscular Disorders: No Hx Family Neurologic Disorders: No Hx Family HEENT Disorders: No Hx Family Autoimmune Disorders: No Father Living Status: Still Living Medications and Allergies Pnv Cmb#21/Iron/Folic Acid [ Complete Caplet] 1 tab PO DAILY #0 [History] Ibuprofen [Motrin] 600 mg PO Q6HR PRN #60 tab 07/27/17 [Rx] 3 Allergy/AdvReac Type Severity Reaction Status Date / Time No Known Allergies Allergy Verified 09/02/17 02:59 Review of Systems All systems PM: A 10-system review of systems was performed and is negative for pertinent findings except as documented above in the HPI. - Constitutional no excessive sweating, no fever(s) - EENT Nose, mouth and throat: headache(s), no abnormal hearing, no hoarseness - Cardiovascular no chest pain, no diaphoresis, no dyspnea - Gastrointestinal abdominal pain, vomiting, no diarrhea - Genitourinary Genitourinary: no dysuria, no urinary frequency, no urinary urgency - Integumentary no jaundice - Neurological no abnormal hearing, no abnormal speech - Allergic/Immunologic no GI upset with certain foods General Surgery Exam Initial Vital Signs Temp Pulse Resp BP Pulse Ox 97.6 F 86 18 136/84 100 10/11/17 00:35 10/11/17 00:35 10/11/17 00:35 10/11/17 00:35 10/11/17 00:35 - General physical appearance well developed, well nourished - Neck no masses - Respiratory normal expansion, normal respiratory effort, clear to auscultation - Cardiovascular Cardiovascular exam: Present: RRR, regular rhythm - Abdomen Abdomen general surgery: Present: bowel sounds present, soft, non tender - Neurologic Present: normal coordination - Psychiatric Psychiatric general surgery: Present: A&Ox3, oriented to person, oriented to place, oriented to time Exam Initial Vital Signs Temp Pulse Resp BP Pulse Ox 97.6 F 86 18 136/84 100 10/11/17 00:35 10/11/17 00:35 10/11/17 00:35 10/11/17 00:35 10/11/17 00:35 Results - Labs 10/12/17 06:18 10/12/17 06:18 Abnormal lab results Hgb 10.2 g/dL (11.5-15.4) L 10/12/17 06:18 Hct 33.9 % (35.3-44.9) L 10/12/17 06:18 MCV 77.8 fL (83.0-100.0) L 10/12/17 06:18 MCH 23.4 pg (28.0-33.3) L 10/12/17 06:18 MCHC 30.1 g/dL (31.6-35.5) L 10/12/17 06:18 RDW 14.9 % (11.5-14.5) H 10/12/17 06:18 Creatinine 0.57 mg/dL (0.60-1.20) L 10/12/17 06:18 AST 49 Units/L (13-39) H 10/12/17 06:18 ALT 110 Units/L (7-52) H 10/12/17 06:18 Alkaline Phosphatase 111 Units/L (34-104) H 10/12/17 06:18 Serum Total Protein 6.3 g/dL (6.4-8.9) L 10/12/17 06:18 LDL Cholesterol, Calc 113 mg/dL (0-99) H 10/12/17 06:18 Ur Specific [place] 1.026 (1.010-1.025) H 10/11/17 00:42 Urine Protein 30 mg/dL (Neg-Trace) H 10/11/17 00:42 Ur Leukocyte Esterase Small (Negative) H 10/11/17 00:42 Urine Microscopic RBC 3-5 per hpf (0-3) H 10/11/17 00:42 Urine Microscopic WBC 15-30 per hpf (0-3) H 10/11/17 00:42 Ur Squamous Epith Cells Many per lpf (None-Few) H 10/11/17 00:42 Diabetes panel 10/12/17 10/12/17 Range/Units 06:18 06:18 Sodium 138 (136-145) mEq/L Potassium 3.8 (3.5-5.1) mEq/L Chloride 106 (98-107) mEq/L Carbon Dioxide 23 (23-29) mEq/L BUN 9 (6-20) mg/dL Creatinine 0.57 L (0.60-1.20) mg/dL Glucose 80 (70-105) mg/dL Calcium 9.2 (8.6-10.3) mg/dL AST 49 H (13-39) Units/L ALT 110 H (7-52) Units/L Alkaline Phosphatase 111 H (34-104) Units/L Albumin 3.9 (3.5-5.7) g/dL Triglycerides 105 (< 150) mg/dL HDL Cholesterol 52 (40-59) mg/dL Calcium panel 10/12/17 Range/Units 06:18 Calcium 9.2 (8.6-10.3) mg/dL Albumin 3.9 (3.5-5.7) g/dL Pituitary panel 10/12/17 Range/Units 06:18 Sodium 138 (136-145) mEq/L Potassium 3.8 (3.5-5.1) mEq/L Chloride 106 (98-107) mEq/L Carbon Dioxide 23 (23-29) mEq/L BUN 9 (6-20) mg/dL Creatinine 0.57 L (0.60-1.20) mg/dL Glucose 80 (70-105) mg/dL Calcium 9.2 (8.6-10.3) mg/dL Adrenal panel 10/12/17 Range/Units 06:18 Sodium 138 (136-145) mEq/L Potassium 3.8 (3.5-5.1) mEq/L Chloride 106 (98-107) mEq/L Carbon Dioxide 23 (23-29) mEq/L BUN 9 (6-20) mg/dL Creatinine 0.57 L (0.60-1.20) mg/dL Glucose 80 (70-105) mg/dL Calcium 9.2 (8.6-10.3) mg/dL Total Bilirubin 0.4 (0.3-1.0) mg/dL AST 49 H (13-39) Units/L ALT 110 H (7-52) Units/L Alkaline Phosphatase 111 H (34-104) Units/L Albumin 3.9 (3.5-5.7) g/dL All other labs normal. Consult Discharge Plan - Plan Referrals: Jorden Howe MD [Primary Care Provider] - <Greyson Solis - Last Filed: 10/12/17 14:50> Date of Encounter: 10/12/17 Review of Systems All systems PM: A 10-system review of systems was performed and is negative for pertinent findings except as documented above in the HPI. General Surgery Exam Initial Vital Signs Temp Pulse Resp BP Pulse Ox 97.6 F 86 18 136/84 100 10/11/17 00:35 10/11/17 00:35 10/11/17 00:35 10/11/17 00:35 10/11/17 00:35 Exam Initial Vital Signs Temp Pulse Resp BP Pulse Ox 97.6 F 86 18 136/84 100 10/11/17 00:35 10/11/17 00:35 10/11/17 00:35 10/11/17 00:35 10/11/17 00:35 Results - Labs 10/12/17 06:18 10/12/17 06:18 Abnormal lab results Hgb 10.2 g/dL (11.5-15.4) L 10/12/17 06:18 Hct 33.9 % (35.3-44.9) L 10/12/17 06:18 MCV 77.8 fL (83.0-100.0) L 10/12/17 06:18 MCH 23.4 pg (28.0-33.3) L 10/12/17 06:18 MCHC 30.1 g/dL (31.6-35.5) L 10/12/17 06:18 RDW 14.9 % (11.5-14.5) H 10/12/17 06:18 Creatinine 0.57 mg/dL (0.60-1.20) L 10/12/17 06:18 AST 49 Units/L (13-39) H 10/12/17 06:18 ALT 110 Units/L (7-52) H 10/12/17 06:18 Alkaline Phosphatase 111 Units/L (34-104) H 10/12/17 06:18 Serum Total Protein 6.3 g/dL (6.4-8.9) L 10/12/17 06:18 LDL Cholesterol, Calc 113 mg/dL (0-99) H 10/12/17 06:18 Ur Specific [place] 1.026 (1.010-1.025) H 10/11/17 00:42 Urine Protein 30 mg/dL (Neg-Trace) H 10/11/17 00:42 Ur Leukocyte Esterase Small (Negative) H 10/11/17 00:42 Urine Microscopic RBC 3-5 per hpf (0-3) H 10/11/17 00:42 Urine Microscopic WBC 15-30 per hpf (0-3) H 10/11/17 00:42 Ur Squamous Epith Cells Many per lpf (None-Few) H 10/11/17 00:42 Diabetes panel 10/12/17 10/12/17 Range/Units :18 06:18 Sodium 138 (136-145) mEq/L Potassium 3.8 (3.5-5.1) mEq/L Chloride 106 (98-107) mEq/L Carbon Dioxide 23 (23-29) mEq/L BUN 9 (6-20) mg/dL Creatinine 0.57 L (0.60-1.20) mg/dL Glucose 80 (70-105) mg/dL Calcium 9.2 (8.6-10.3) mg/dL AST 49 H (13-39) Units/L ALT 110 H (7-52) Units/L Alkaline Phosphatase 111 H (34-104) Units/L Albumin 3.9 (3.5-5.7) g/dL Triglycerides 105 (< 150) mg/dL HDL Cholesterol 52 (40-59) mg/dL Calcium panel 10/12/17 Range/Units 06:18 Calcium 9.2 (8.6-10.3) mg/dL Albumin 3.9 (3.5-5.7) g/dL Pituitary panel 10/12/17 Range/Units 06:18 Sodium 138 (136-145) mEq/L Potassium 3.8 (3.5-5.1) mEq/L Chloride 106 (98-107) mEq/L Carbon Dioxide 23 (23-29) mEq/L BUN 9 (6-20) mg/dL Creatinine 0.57 L (0.60-1.20) mg/dL Glucose 80 (70-105) mg/dL Calcium 9.2 (8.6-10.3) mg/dL Adrenal panel 10/12/17 Range/Units 06:18 Sodium 138 (136-145) mEq/L Potassium 3.8 (3.5-5.1) mEq/L Chloride 106 (98-107) mEq/L Carbon Dioxide 23 (23-29) mEq/L BUN 9 (6-20) mg/dL Creatinine 0.57 L (0.60-1.20) mg/dL Glucose 80 (70-105) mg/dL Calcium 9.2 (8.6-10.3) mg/dL Total Bilirubin 0.4 (0.3-1.0) mg/dL AST 49 H (13-39) Units/L ALT 110 H (7-52) Units/L Alkaline Phosphatase 111 H (34-104) Units/L Albumin 3.9 (3.5-5.7) g/dL All other labs normal. - Attending Attestation I examined this patient and my medical decision-making was reviewed with the Resident Physician. I agree with the documented findings, disposition and treatment plan as described except to the extent set forth below. The patient is seen in evaluated with resident. She has evidence of gallstone pancreatitis. She was given a diet before surgical consultation was requested. Since she is tolerating diet she can be discharged from the hospital. She has follow-up with Dr. Fatima on Friday. She likely will require convalescent laparoscopic cholecystectomy to prevent future episodes of gallstone pancreatitis Greyson Solis MD FACS
--- NOTE | 2017-10-12 16:03 | Discharge Summary ---
Date of Encounter: 10/12/17 Time of Encounter: 15:58 - Discharge Diagnosis (1) Acute pancreatitis Priority: Primary Status: Acute Qualifiers: Pancreatitis type: biliary Acute pancreatitis complication: no infection or necrosis Qualified Code(s): K85.10 - Biliary acute pancreatitis without necrosis or infection - Discharge Medications Home Medications: Pnv Cmb#21/Iron/Folic Acid [ Complete Caplet] 1 tab PO DAILY #0 [History] Ibuprofen [Motrin] 600 mg PO Q6HR PRN #60 tab 07/27/17 [Rx] Allergies/Adverse Reactions: 3 Allergy/AdvReac Type Severity Reaction Status Date / Time No Known Allergies Allergy Verified 09/02/17 02:59 Procedures/tests Complete & Pending: Procedures Performed prior 72 hours Category Date Time Status US abdomen limited [US] Stat Exams 10/11/17 09:00 Completed Date of admission: 10/11/17 04:52 Primary care physician: Jorden Howe MD Consults: 10/12/17 10:43 Consult to Surgery [CONS] Routine Consulting Provider: Greyson Solis Reason for Consult: Acute pancreatitis, possibly gallstone Call Completed: Yes Discharging clinician: Ana Velasquez - Patient Status Disposition: Home, Self-Care Condition: Good Functional capacity at discharge: independent ambulation Overall status at discharge: patient is back to baseline - Discharge Instructions Follow Up With: Jorden Howe MD [Primary Care Provider] - - Diet and Activity Activity: increase activity as tolerated Diet: low fat, low cholesterol Hospital course: Ms. Crow is a 22 year old female who is 2 months presented for 2 hr history of acute abdominal pain with one episode of NB/NB vomitng. Went to ED and findings significant for lipase in 8000s, CT showed RUQ inflammation consistent with pancreatitis. She had RUQ ultrasound done showing cholelithiasis without any duct obstruction or dilatation. Patient was placed NPO, given IVF and pain/nausea medication. Her pain improved. She developed a good appetite, and her diet was advanced. She was evaluated by surgery but patient had already eaten a meal prior to the consult so no surgical intervention was taken. Her lipase improved to 76 and she clinically was well. She has an appointment with Dr. Fatima tomorrow for evaluation. She was discharged home in stable condition and plans to follow-up in office tomorrow as scheduled. - Time Spent with Patient Total time spent providing and/or coordinating discharge services: - Constitutional Vitals: Temp Pulse Resp BP Pulse Ox 97.7 F 65 18 126/78 98 10/12/17 10:42 10/12/17 10:42 10/12/17 10:42 10/12/17 10:42 10/12/17 10:42 General appearance: Present: A&O X 3, no acute distress, answers questions appropriately - Head Head exam: Present: atraumatic, normocephalic - Eye Eye exam: Present: PERRL, conjuntiva pink, sclera anicteric Pupils: Present: PERRL - Neck Neck exam general surgery: Present: supple, trachea midline. Absent: lymphadenopathy - Respiratory Respiratory exam: Present: CTAB. Absent: accessory muscle use, rales, rhonchi, wheezes - Cardiovascular Cardiovascular exam: Present: RRR, +S1, +S2. Absent: diastolic murmur, gallop, rubs, systolic murmur - GI/Abdominal GI/Abdominal exam: Present: normal bowel sounds, soft, no peritoneal signs. Absent: distended, tenderness - Extremities Exam Extremities exam: Present: warm, radial pulses palpable and symmetrical. Absent : calf tenderness, cyanotic, pedal edema - Neurological Exam Neurological exam: Present: CN II-XII intact, oriented X3, no focal deficits. Absent: pronater drift, facial droop, speech deficit - Skin Skin exam: Present: dry, intact
== END 2017-10-12 18:16 | disposition home or self-care (01) ==
LOC: 3ANU 00:34 → EMEROO 00:34 → 3ANU 05:26
PROVIDERS: ADMIT Internal Medicine; ATTEND Student in an Organized Health Care Education/Training Program